=== PATIENT | male | born 1975 | race Caucasian/White ===

== ENCOUNTER 2022-10-28 16:24 | Inpatient (IN) ==
[2022-10-28] MEDS ORDERED: ASPIRIN EC 325 MG TABLET PO STA (18:15)
[2022-10-28 18:25] LABS: Basophils % 0.4 % (0.0-0.8); Eosinophils # 0.1 10*3/uL (0.0-0.87); Eosinophils % 0.9 % (0.00-10.9); Hematocrit 44.3 VOL% (42.0-52.0); Hemoglobin 14.8 GM/DL (14.0-18.0); Immature Granulocytes % 0.6 %; Immature Granulocytes Absolute 0.06 #; Lymphocytes # 2.2 10*3/uL (1.4-4.0); Lymphocytes % 20.5 % (21.2-54.2); Mean Corpuscular HGB Conc 33.4 GM/DL (32-36); Mean Corpuscular Volume 89.5 FL (87-102); Mean Platelet Volume 9.6 FL (9.6-12.0); Monocytes # 0.6 10*3/uL (0.11-0.8); Monocytes % 5.9 % (1.7-12.7); Neutrophils % 71.7 % (38.7-73.9); Platelet Count 229 T/CUMM (130-400); Red Blood Count 4.95 MC/CUMM (3.8-5.5); Red Cell Distribution Width 13.6 % (9.3-17.3); White Blood Count 10.6 T/CUMM (4-12)
[2022-10-28 18:36] LABS: Albumin 4.3 G/DL (3.4-5.0); Bilirubin,Total 0.6 MG/DL (0.20-1.00); Calcium 9.4 MG/DL (8.5-10.1); Osmolality,Calculated 275.5 MOS/KG (273-304); Potassium 4.2 MMOL/L (3.5-5.1); Total Protein 7.5 G/DL (6.4-8.2)
[2022-10-28 20:34] LABS: Mucus,Urine Occasional /LPF (Occasional); RBC,Urine <1 /HPF (0-4)
[2022-10-28 20:35] LABS: Bilirubin,Urine Negative (Negative); Glucose,Urine (UA) Negative (Negative); Ketones,Urine Negative (Negative); Nitrite,Urine Negative (Negative); Protein,Urine Negative (Negative); Urine Appearance Clear (Clear); Urine Color Yellow (Yellow); Urine Specific Gravity 1.015 (1.001-1.035)
[2022-10-28 20:36] LABS: Blood, Urine Negative (Negative); Urine Urobilinogen 0.2 eU/dL (<2.0)
[2022-10-28] MEDS ORDERED: NICOTINE 21 MG/24 HR PATCH TRANSDERM PRN (20:40)
[2022-10-28] MEDS ORDERED: traZODone 50 MG TABLET PO PRN (20:40)
[2022-10-28] MEDS ORDERED: ONDANSETRON 4 MG/2 ML VIAL IV PRN (20:40)
[2022-10-28] MEDS ORDERED: DOCUSATE SODIUM 100 MG CAPSULE PO PRN (20:40)
[2022-10-28] MEDS ORDERED: ACETAMINOPHEN 325 MG TABLET PO PRN (20:40)
[2022-10-28 20:51] LABS: Barbiturates Screen,Urine Negative (Negative); Benzodiazepines Screen,Urine Negative (Negative); Cannabinoid Screen,Urine Negative (Negative); Opiate Screen,Urine Negative (Negative); Phencyclidine Screen,Urine Negative (Negative)
[2022-10-28] MEDS: ENOXAPARIN 40 MG/0.4 ML SYRINGE SUBCUT SCH (22:35)
[2022-10-29 04:46] LABS: Basophils % 0.3 % (0.0-0.8); Eosinophils # 0.2 10*3/uL (0.0-0.87); Eosinophils % 1.5 % (0.00-10.9); Hematocrit 43.7 VOL% (42.0-52.0); Hemoglobin 14.5 GM/DL (14.0-18.0); Immature Granulocytes % 0.7 %; Immature Granulocytes Absolute 0.07 #; Lymphocytes # 2.6 10*3/uL (1.4-4.0); Lymphocytes % 24.4 % (21.2-54.2); Mean Corpuscular HGB Conc 33.2 GM/DL (32-36); Mean Corpuscular Volume 88.6 FL (87-102); Mean Platelet Volume 9.3 FL (9.6-12.0); Monocytes # 0.7 10*3/uL (0.11-0.8); Monocytes % 6.7 % (1.7-12.7); Neutrophils % 66.4 % (38.7-73.9); Platelet Count 225 T/CUMM (130-400); Red Blood Count 4.93 MC/CUMM (3.8-5.5); Red Cell Distribution Width 13.6 % (9.3-17.3); White Blood Count 10.5 T/CUMM (4-12)
[2022-10-29 05:37] LABS: Calcium 9.2 MG/DL (8.5-10.1); Osmolality,Calculated 276.4 MOS/KG (273-304); Potassium 3.8 MMOL/L (3.5-5.1); Risk Ratio 7.15; Thyroid Stimulating Hormone 3.01 uIU/ml (0.358-3.74); VLDL Cholesterol 35.6 MG/DL
[2022-10-29] MEDS: CHOLECALCIFEROL 5,000 UNIT TABLET PO SCH ×2 (15:21→22:15)
[2022-10-29] MEDS: ASPIRIN EC 325 MG TABLET PO SCH (15:22)
[2022-10-29] MEDS: ZINC GLUCONATE 50 MG TABLET PO SCH (15:22)
[2022-10-29] MEDS: ASCORBIC ACID 500 MG TABLET PO SCH ×2 (15:22→22:13)
[2022-10-29] MEDS: ROSUVASTATIN 20 MG TABLET PO SCH (22:14)
[2022-10-29] MEDS: MELATONIN 3 MG TABLET PO SCH (22:14)
[2022-10-29] MEDS: ENOXAPARIN 40 MG/0.4 ML SYRINGE SUBCUT SCH (22:14)
[2022-10-30] MEDS: ZINC GLUCONATE 50 MG TABLET PO SCH (08:28)
[2022-10-30] MEDS: ASPIRIN EC 325 MG TABLET PO SCH (08:28)
[2022-10-30] MEDS: ASCORBIC ACID 500 MG TABLET PO SCH ×2 (08:28→20:25)
[2022-10-30] MEDS: CHOLECALCIFEROL 5,000 UNIT TABLET PO SCH ×2 (08:28→20:26)
[2022-10-30] MEDS: ROSUVASTATIN 20 MG TABLET PO SCH (20:25)
[2022-10-30] MEDS: MELATONIN 3 MG TABLET PO SCH (20:25)
[2022-10-30] MEDS: ENOXAPARIN 40 MG/0.4 ML SYRINGE SUBCUT SCH (20:25)
[2022-10-31] MEDS: CHOLECALCIFEROL 5,000 UNIT TABLET PO SCH ×2 (08:57→21:50)
[2022-10-31] MEDS: ASCORBIC ACID 500 MG TABLET PO SCH ×2 (08:57→21:50)
[2022-10-31] MEDS: ZINC GLUCONATE 50 MG TABLET PO SCH (08:57)
[2022-10-31] MEDS: ASPIRIN EC 325 MG TABLET PO SCH (08:57)
[2022-10-31] MEDS: ROSUVASTATIN 20 MG TABLET PO SCH (21:50)
[2022-10-31] MEDS: MELATONIN 3 MG TABLET PO SCH (21:50)
[2022-10-31] MEDS: ENOXAPARIN 40 MG/0.4 ML SYRINGE SUBCUT SCH (21:51)
[2022-11-01] MEDS: ASPIRIN EC 325 MG TABLET PO SCH (09:23)
[2022-11-01] MEDS: CHOLECALCIFEROL 5,000 UNIT TABLET PO SCH (09:23)
[2022-11-01] MEDS: ZINC GLUCONATE 50 MG TABLET PO SCH (09:24)
[2022-11-01] MEDS: ASCORBIC ACID 500 MG TABLET PO SCH (09:24)
[2022-11-01 12:25] VITALS: BP 131/83
== END 2022-11-01 14:55 | DRG 65 ==
LOC: N.EDINP 16:24 → N.ED 16:24 → N.2W 21:18 → N.TELES 10-31 18:51
PROVIDERS: ADMIT Internal Medicine; ATTEND Internal Medicine